=== PATIENT | male | born 1985 | race Caucasian/White ===

== ENCOUNTER 2020-11-30 12:33 | Emergency (ER) | payer OTHER ==
[~2020-11-30] VITALS: Ht 177.8 cm; Wt 102.1 kg
[2020-11-30] MEDS ORDERED: Tobrex Ophth S2.5 ML OPH (14:15)
[2020-11-30] MEDS ORDERED: IBUPROFEN600 MG PO (14:15)
== END 2020-11-30 14:23 | disposition home or self-care (01) ==
LOC: ED 12:33
DX: T15.01XA Foreign body in cornea, right eye, initial encounter (principal); Y92.89 Other specified places as the place of occurrence of the external cause

== ENCOUNTER 2024-12-07 08:51 | Emergency (ER) | payer BC ==
[~2024-12-07] VITALS: Ht 177.8 cm; Wt 113.4 kg
[~2024-12-07 08:51] MED LIST: IBUPROFEN600 MG PO; Tobrex Ophth S2.5 ML OPH
[2024-12-07] MEDS ORDERED: TRAMADOL HCL50 MG PO (10:08)
== END 2024-12-07 10:29 | disposition home or self-care (01) ==
LOC: ED 08:51
DX: S42.202A Unspecified fracture of upper end of left humerus, initial encounter for closed fracture (principal); W00.0XXA Fall on same level due to ice and snow, initial encounter; Y93.89 Activity, other specified; Y92.009 Unspecified place in unspecified non-institutional (private) residence as the place of occurrence of the external cause; Y99.8 Other external cause status